=== PATIENT | male | born 1985 | race Caucasian/White ===

== ENCOUNTER 2016-11-13 12:04 | Emergency (ER) | payer OTHER ==
--- NOTE | 2016-11-13 12:44 | RADIOLOGY REPORT (SQ) ---
EXAM DESCRIPTION: HAND LEFT 3 VIEWS COMPLETED DATE/TIME: 11/13/2016 12:33 pm REASON FOR STUDY: hit hand on wall COMPARISON: None. EXAM PARAMETERS: NUMBER OF VIEWS: Three views. TECHNIQUE: AP, lateral and oblique radiographic images acquired of the left hand. LIMITATIONS: None. FINDINGS: MINERALIZATION: Normal. BONES: Acute fracture, left 5th metacarpal metaphysis distally, with palmar angulation of the distal fracture fragment. JOINTS: No effusions. SOFT TISSUES: Dorsal left hand soft tissue swelling. No foreign body. OTHER: No other significant finding. IMPRESSION: Acute 5th metacarpal distal metaphysis fracture with palmar angulation of the distal fra cture fragment TECHNICAL DOCUMENTATION: JOB ID: [id number] [employer]- All Rights Reserved
[2016-11-13] MEDS ORDERED: OXYCODONE-ACETAMINOPHEN 5-325 MG TABLET PO ONE (12:57)
--- NOTE | 2016-11-13 13:09 | ER Document Report ---
HPI - HPI Patient complains to provider of: hand injury Pain Level: 5 Context: 31 yo male c/o left hand pain. punched wall Associated Symptoms: None Exacerbated by: Movement Relieved by: Denies Similar symptoms previously: No Recently seen / treated by doctor: No - ROS Systems Reviewed and Negative: Yes All other systems reviewed and negative - REPRODUCTIVE Reproductive: DENIES: : - DERM Skin Color: Normal Past Medical History - General Information source: Patient - Social History Smoking Status: Current Every Day Smoker Chew tobacco use (# tins/day): No Frequency of alcohol use: Social Drug Abuse: Marijuana Lives with: Family Family History: CAD, Hyperlipidemia, Hypertension, Malignancy Patient has suicidal ideation: No Patient has homicidal ideation: No - Medical History Medical History: Negative Neurological Medical History: Reports: Hx Migraine Renal/ Medical History: Denies: Hx Peritoneal Dialysis GI Medical History: Reports: Hx Irritable Bowel Musculoskeltal Medical History: Reports Hx Arthritis, Reports Hx Musculoskeletal Deformity, Reports Hx Musculoskeletal Trauma Psychiatric Medical History: Reports: Hx Attention Deficit Hyperactivity Disorder Traumatic Medical History: Reports: Hx Fractures Past Surgical History: Reports: Hx Orthopedic Surgery - bilateral wrist - Immunizations Immunizations up to date: Yes Hx Diphtheria, Pertussis, Tetanus Vaccination: Yes Vertical Provider Document - CONSTITUTIONAL Agree With Documented VS: Yes Exam Limitations: No Limitations General Appearance: WD/WN, No Apparent Distress - INFECTION CONTROL TRAVEL OUTSIDE OF THE [place] IN LAST 30 DAYS: No - HEENT HEENT: Atraumatic, PERRLA - NECK Neck: Normal Inspection, Supple - RESPIRATORY Respiratory: Breath Sounds Normal, No Respiratory Distress - CARDIOVASCULAR Cardiovascular: Regular Rate, Regular Rhythm - MUSCULOSKELETAL/EXTREMETIES Musculoskeletal/Extremeties: Tender - dorsal left hand over 5th metacarpal, Edema - soft tissue swelling to left dorsal hand - NEURO Level of Consciousness: Awake, Alert, Appropriate Course - Re-evaluation Re-evalutation: 11/13/16 13:05 xray + acute distal metaphysis fracture of left 5th metacarpal with palmar angulation of the distal fracture fragment fracture splinted. arm slinged. pt stable for discharge and outpatient ortho follow up. pt agreeable with plan Procedures - Immobilization left hand Pre-Proc Neuro Vasc Exam: Normal Immobilizer type: Ulnar Performed by: PCT Post-Proc Neuro Vasc Exam: Normal Alignment checked and good: Yes Discharge - Discharge Clinical Impression: Fracture of fifth metacarpal bone Qualifiers: Encounter type: initial encounter Fracture type: closed Metacarpal location: shaft Fracture alignment: displaced Laterality: unspecified laterality Qualified Code(s): S62.328A - Displaced fracture of shaft of other metacarpal bone, initial encounter for closed fracture Condition: Stable Disposition: HOME, SELF-CARE Instructions: Fractured Fifth Metacarpal ([facility]), Splint Pending Casting ([facility]), Sling to be Used ([facility]), Ice & Elevation ([facility]), Oral Narcotic Medication ([facility]) Additional Instructions: keep splint intact until seen by orthopedist keep hand elevated as much as possible pain med as needed follow up with orthopedist TEETEE for further evaluation and treatment Prescriptions: Oxycodone HCl/Acetaminophen [Percocet 5-325 mg Tablet] 1 - 2 tab PO ASDIR PRN # 25 tablet PRN Reason: Forms: Return to Work Referrals: WILLARD LOPEZ MD [ACTIVE STAFF] - Follow up as needed
[2016-11-13 13:52] VITALS: BP 128/77
== END 2016-11-13 13:52 | disposition home or self-care (01) ==
LOC: ER 12:04
PROC: 2W3DX1Z Immobilization of Left Lower Arm using Splint (ICD-10-PCS; principal; 2016-11-13)
DX: S62.328A Displaced fracture of shaft of other metacarpal bone, initial encounter for closed fracture (principal); W22.01XA Walked into wall, initial encounter; F17.200 Nicotine dependence, unspecified, uncomplicated
CPT/HCPCS: 99283

== ENCOUNTER 2016-11-27 12:50 | Emergency (ER) | payer SELFPAY ==
[2016-11-27] MEDS ORDERED: OXYCODONE-ACETAMINOPHEN 5-325 MG TABLET PO ONE (13:46)
--- NOTE | 2016-11-27 14:02 | ER Document Report ---
HPI - HPI Patient complains to provider of: left hand pain Pain Level: 5 Context: pt seen in ED 3 days ago for boxer's fracture. has splint in place. pt fell, hitting hand on table now c/o increased pain. Associated Symptoms: None Exacerbated by: Movement Relieved by: Denies - ROS Systems Reviewed and Negative: Yes All other systems reviewed and negative - REPRODUCTIVE Reproductive: DENIES: : - DERM Skin Color: Normal Past Medical History - General Information source: Patient - Social History Smoking Status: Current Every Day Smoker Frequency of alcohol use: Social Drug Abuse: Marijuana Lives with: Family Family History: CAD, Hyperlipidemia, Hypertension, Malignancy Patient has suicidal ideation: No Patient has homicidal ideation: No - Medical History Medical History: Negative Neurological Medical History: Reports: Hx Migraine Renal/ Medical History: Denies: Hx Peritoneal Dialysis GI Medical History: Reports: Hx Irritable Bowel Musculoskeltal Medical History: Reports Hx Arthritis, Reports Hx Musculoskeletal Deformity, Reports Hx Musculoskeletal Trauma Psychiatric Medical History: Reports: Hx Attention Deficit Hyperactivity Disorder Traumatic Medical History: Reports: Hx Fractures Past Surgical History: Reports: Hx Orthopedic Surgery - bilateral wrist - Immunizations Immunizations up to date: Yes Hx Diphtheria, Pertussis, Tetanus Vaccination: Yes Vertical Provider Document - CONSTITUTIONAL Agree With Documented VS: Yes Exam Limitations: No Limitations - INFECTION CONTROL TRAVEL OUTSIDE OF THE [place] IN LAST 30 DAYS: No - HEENT HEENT: Atraumatic, PERRLA - NECK Neck: Normal Inspection, Supple - RESPIRATORY Respiratory: Breath Sounds Normal, No Respiratory Distress O2 Sat by Pulse Oximetry: 99 - MUSCULOSKELETAL/EXTREMETIES Musculoskeletal/Extremeties: Tender - left dorsal hand over 5th metatarsal. + soft tissue swelling. sensation/circulation intact. no suspicion for compartment syndrome Course - Re-evaluation Re-evalutation: 11/27/16 14:05 no change in fracture. splint re-applied. pt stable for discharge and orthopedic follow up - Vital Signs Vital signs: Temp Pulse Resp BP Pulse Ox 98.1 F 68 18 148/98 H 99 11/27/16 12:54 11/27/16 12:54 11/27/16 12:54 11/27/16 12:54 11/27/16 12:54 Discharge - Discharge Clinical Impression: Boxers fracture Qualifiers: Encounter type: initial encounter Fracture type: closed Qualified Code(s): S62.339A - Displaced fracture of neck of unspecified metacarpal bone, initial encounter for closed fracture Condition: Stable Disposition: HOME, SELF-CARE Instructions: Fractured Fifth Metacarpal ([facility]), Oral Narcotic Medication ([facility]) , Ice & Elevation ([facility]), Splint Pending Casting ([facility]) Additional Instructions: No change in fracture wear splint until seen by orthopedist pain med as needed keep hand elevated as much as possible Prescriptions: Oxycodone HCl/Acetaminophen [Percocet 5-325 mg Tablet] 1 - 2 tab PO ASDIR PRN # 15 tablet PRN Reason: Forms: Elevated Blood Pressure
[2016-11-27 15:29] VITALS: BP 130/87
--- NOTE | 2016-11-27 15:59 | RADIOLOGY REPORT (SQ) ---
EXAM DESCRIPTION: HAND LEFT 3 VIEWS COMPLETED DATE/TIME: 11/27/2016 2:30 pm REASON FOR STUDY: hand pain, recent boxers fracture. fell on hand COMPARISON: 11/13/2016 EXAM PARAMETERS: NUMBER OF VIEWS: Three views. TECHNIQUE: AP, lateral and oblique radiographic images acquired of the left hand. LIMITATIONS: None. FINDINGS: MINERALIZATION: Normal. BONES: Boxer's fracture of the 5th metacarpal is again noted. Distal fragment appears to be slightly more displaced in a radial direction. JOINTS: No effusions. SOFT TISSUES: No soft tissue swelling. No foreign body. OTHER: No other significant finding. IMPRESSION: Questionable subtle increased displacement of the distal fragment of the 5th metacarpal fracture as described. No other significant changes. TECHNICAL DOCUMENTATION: JOB ID: [id number]- All Rights Reserved
== END 2016-11-27 15:30 | disposition home or self-care (01) ==
LOC: ER 12:50
DX: S62.337D Displaced fracture of neck of fifth metacarpal bone, left hand, subsequent encounter for fracture with routine healing (principal); X58.XXXD Exposure to other specified factors, subsequent encounter; F17.200 Nicotine dependence, unspecified, uncomplicated
CPT/HCPCS: 99282

== ENCOUNTER 2016-12-13 12:10 | Emergency (ER) | payer SELFPAY ==
[2016-12-13 12:18] VITALS: BP 132/83
--- NOTE | 2016-12-13 12:36 | ER Document Report ---
HPI - HPI Patient complains to provider of: left hand pain s/p fx 11-13-16 Onset: Other - 11-13-16 Onset/Duration: Persistent Quality of pain: Throbbing Pain Level: 4 Context: 31 yo right handed male with right 5th MC fx on 11-13, 2nd ER visit since without seeing orthopedic MD due to cost. He wants to how long it will hurt and really concerned that he will lose the function of his left hand. Associated Symptoms: None Exacerbated by: Movement Relieved by: Denies - ROS ROS below otherwise negative: Yes Systems Reviewed and Negative: Yes All other systems reviewed and negative - REPRODUCTIVE Reproductive: DENIES: : - DERM Skin Color: Normal Past Medical History - General Information source: Patient - Social History Smoking Status: Unknown if Ever Smoked Frequency of alcohol use: None Drug Abuse: None Lives with: Family Family History: CAD, Hyperlipidemia, Hypertension, Malignancy Neurological Medical History: Reports: Hx Migraine Renal/ Medical History: Denies: Hx Peritoneal Dialysis GI Medical History: Reports: Hx Irritable Bowel Musculoskeltal Medical History: Reports Hx Arthritis, Reports Hx Musculoskeletal Deformity, Reports Hx Musculoskeletal Trauma Psychiatric Medical History: Reports: Hx Attention Deficit Hyperactivity Disorder Traumatic Medical History: Reports: Hx Fractures Past Surgical History: Reports: Hx Orthopedic Surgery - bilateral wrist - Immunizations Immunizations up to date: Yes Hx Diphtheria, Pertussis, Tetanus Vaccination: Yes Vertical Provider Document - INFECTION CONTROL TRAVEL OUTSIDE OF THE [place] IN LAST 30 DAYS: No - HEENT HEENT: Normocephalic - NECK Neck: Supple - RESPIRATORY O2 Sat by Pulse Oximetry: 96 - MUSCULOSKELETAL/EXTREMETIES Musculoskeletal/Extremeties: Tender, Edema - lateral dorsal left hand over 4th, 5th MC, minimal rotation deviation of the pinky chris with flexion, no overlapping. Notes: n/v intact. while the splint was off, encouraged him to do wrist and fingr ROM. - NEURO Level of Consciousness: Awake, Alert - DERM Integumentary: Warm, Dry Course - Re-evaluation Re-evalutation: 12/13/16 14:00 beginning to heal with osteo reaction on xray today., right handed 12/13/16 14:32 - Vital Signs Vital signs: Temp Pulse Resp BP Pulse Ox 98.4 F 88 14 132/83 H 96 12/13/16 12:15 12/13/16 12:15 12/13/16 12:15 12/13/16 12:15 12/13/16 12:15 Procedures - Immobilization Left Wrist Time completed: 14:32 Pre-Proc Neuro Vasc Exam: Normal Immobilizer type: Volar splint Performed by: PCT Post-Proc Neuro Vasc Exam: Normal Alignment checked and good: Yes Discharge - Discharge Clinical Impression: jimmy medina left 5th MC, 1 month ago Condition: Good Disposition: HOME, SELF-CARE Instructions: Splint Precautions ([facility]), Splint Pending Casting ([facility]), Temporary Sling ([facility]), Ultram ([facility]), Acetaminophen Additional Instructions: elevate above your heart see the orthopedic doctor as instructed take tylenol and the ultram for pain to er any concerns Please complete the patient satisfaction survey if you get one, and return it.. If you do not receive a survey, then you can go to the [facility] website, [email or web address] and place your comments about your very good care. Thank you very much. It was a pleasure being your medical provider today. Prescriptions: Tramadol HCl [Ultram 50 mg Tablet] 50 mg PO ASDIR PRN #20 tablet PRN Reason:
--- NOTE | 2016-12-13 13:44 | RADIOLOGY REPORT (SQ) ---
EXAM DESCRIPTION: HAND LEFT 3 VIEWS COMPLETED DATE/TIME: 12/13/2016 1:31 pm REASON FOR STUDY: check bone healing COMPARISON: 11/13/2016. EXAM PARAMETERS: NUMBER OF VIEWS: Three views. TECHNIQUE: AP, lateral and oblique radiographic images acquired of the left hand. LIMITATIONS: None. FINDINGS: MINERALIZATION: Normal. BONES: Stable fracture of the 5th metacarpal. Small amount of callus but no solid bony union at this time. No acute fracture or dislocation. No worrisome bone lesions. JOINTS: No effusions. SOFT TISSUES: No soft tissue swelling. No foreign body. OTHER: No other significant finding. IMPRESSION: STABLE HEALING FRACTURE OF THE LEFT 5TH METACARPAL. THERE IS A SMALL AMOUNT OF CALLUS B UT NO SOLID BONY UNION AT THIS TIME. TECHNICAL DOCUMENTATION: JOB ID: [id number] [employer]- All Rights Reserved
== END 2016-12-13 15:00 | disposition home or self-care (01) ==
LOC: ER 12:10
PROC: 2W3DX1Z Immobilization of Left Lower Arm using Splint (ICD-10-PCS; principal; 2016-12-13)
DX: S62.317D Displaced fracture of base of fifth metacarpal bone, left hand, subsequent encounter for fracture with routine healing (principal)
CPT/HCPCS: 99283

== ENCOUNTER 2017-05-28 00:23 | Emergency (ER) | payer SELFPAY ==
[2017-05-28 00:38] VITALS: BP 125/66
--- NOTE | 2017-05-28 07:42 | EKG REPORT ---
SEVERITY:- NORMAL ECG - SINUS RHYTHM : Confirmed by: Richard Huizar MD 28-May-2017 07:41:29
== END 2017-05-28 00:58 | disposition left against medical advice (07) ==
LOC: ER 00:23
DX: Z53.21 Procedure and treatment not carried out due to patient leaving prior to being seen by health care provider (principal)
CPT/HCPCS: 93005; 93010